=== PATIENT | female | born 1945 | race Caucasian/White ===

== ENCOUNTER → 2016-06-14 | Outpatient (CLI) | payer MEDICARE, OTHER ==
[~2016-06-14] MED LIST: CHOL200024 PO; LEVO100T12 PO; PILO5TAB PO; VITA150T PO; VITA400C19 PO; [UNRECOGNIZED DRUG - CODE] PO; [UNRECOGNIZED DRUG - CODE] PO
== END ==
LOC: WC.BC 13:02
DX: Z12.31 Encounter for screening mammogram for malignant neoplasm of breast (principal); N64.59 Other signs and symptoms in breast
CPT/HCPCS: 77063; G0202

== ENCOUNTER 2016-09-26 07:01 | Inpatient (IN) ==
[~2016-09-26 07:01] MED LIST changes: +ACETAMINOPHEN 500 MG TABLET PO ONE; -CHOL200024 PO; +FAMOTIDINE PREMIX 20 MG/50 ML BAG IV ONE; -LEVO100T12 PO; +LIDOCAINE 1% (10mg/ml) 10mL MDV SQ ONE; +MELOXICAM 15 MG TABLET PO ONE; +METOCLOPRAMIDE 10mg/2ml INJECTION IVP ONE; +NOZIN NASAL SWAB NAS ONE; +ONDANSETRON 4 MG/2 ML INJECTION IVP ONE; -PILO5TAB PO; -VITA150T PO; -VITA400C19 PO; -[UNRECOGNIZED DRUG - CODE] PO; -[UNRECOGNIZED DRUG - CODE] PO
--- NOTE | 2016-09-26 07:06 | History & Physical Update ---
- History and Physical Update Date: 09/26/16 Update: I evaluated this patient and found no changes in the history and clinical exam findings. The treatment plan and recommendations are also unchanged from the previous documentation.
[2016-09-26] MEDS: LR 1,000 ML IV SCH ×2 (07:49→11:23)
[2016-09-26] MEDS ORDERED: EPINEPHrine 0.25 MG, BUPIVACAINE 0.25% PF 30 ML, MORPHINE SULFATE 15 MG, KETOROLAC INJ ... OPSITE ONE (08:00)
--- NOTE | 2016-09-26 08:06 | Anesthesia Preoperative Report ---
Anesthesia Preoperative Record - Date and Time Date: 09/26/16 Preoperative Diagnosis: OA right knee Proposed Procedure: Right total knee NPO Since Date: 09/26/16 NPO Since Time: 00:00 Allergies/Adverse Reactions: Allergies Allergy/AdvReac Type Severity Reaction Status Date / Time Corticosteroids Allergy Unknown Flushing, Verified 09/21/16 13:34 (Glucocorticoids) heart racing diphenhydramine Allergy Unknown Flushing, Verified 09/21/16 13:34 severe headache, rapid heart rate tetracycline Allergy Unknown mouth sores Verified 09/21/16 13:34 codeine AdvReac Unknown Nausea Verified 09/21/16 13:34 morphine AdvReac Unknown Nausea Verified 09/21/16 13:34 iodine Allergy Unknown Injectable Uncoded 09/21/16 13:34 only, rash - Vital Signs Vital Signs: Temperature 97.9 F 09/26/16 07:16 Pulse Rate 80 09/26/16 07:16 Respiratory Rate 13 09/26/16 07:16 Blood Pressure 185/91 H 09/26/16 07:16 Pulse Oximetry 94 09/26/16 07:16 Oxygen Delivery Method Room Air Height and Weight: Height 1.68 m Weight 82.9 kg Body Mass Index 29.5 - Medications Inpatient Medications: Current Medications Epinephrine HCl 0.25 mg/Bupivacaine HCl 30 ml/Morphine Sulfate 15 mg/Ketorolac Tromethamine 60 mg/Sodium Chloride 65.25 mls @ 1 mls/hr OPSITE INTRAOP ONE PRN Reason: Protocol Stop: 09/29/16 01:14 Lactated Ringer's (Lactated Ringers) 1,000 mls @ 50 mls/hr IV .Q20H FRENCH Last Admin: 09/26/16 07:49 Dose: 50 mls/hr Sodium Chloride (Iv Flush) 10 - 80 ml IVF PRN PRN PRN Reason: Flushing Home Medications: Home Medications Medication Instructions Recorded Confirmed Type Vitamin E 800 unit PO DAILY #0 cap 05/04/15 History Biotin 7.5 mg PO DAILY 08/30/16 09/26/16 History Calcium Carbonate [Caltrate] 1,200 mg PO DAILY 08/30/16 09/26/16 History Cyanocobalamin (Vitamin B-12) 1,000 mcg PO DAILY 08/30/16 09/26/16 History [Vitamin B-12] Estrogens,Esterified [Menest] 1.25 mg PO DAILY 08/30/16 09/26/16 History L. Acidophilus/Bifid. Animalis 2 each PO DAILY 08/30/16 09/26/16 History [Dialyvite Chewable Probiotic] Levothyroxine Tab [Synthroid] 150 mcg PO ACB 08/30/16 09/26/16 History Pilocarpine Tab [Salagen] 5 mg PO TID MDD 20mg 08/30/16 09/26/16 History naproxen sodium 220 mg capsule 220 mg PO .prn cap 09/21/16 History peg 400-propylene glycol 0.4 %-0.3 1 drop EACH EYE Q6H PRN 09/21/16 History % eye drops Is Patient on Beta Myron?: No - Medical History Renal/Endocrine: Reports: Thyroid Disease - Surgical History HEENT Surgeries: Reports: Ear Surgery (Coleman Cataract w/ IOL; Retina detachment OS ; Retinal hole OS) GI Surgery/Treatments: Reports: Colonoscopy (10 years ago) Surgery/Treatment: REPORT: Other (cysto '83) Musculoskeletal Surgery/Tx: Reports: Total Knee Replacement (Left) Reproductive Surgery/Treatment: Reports: Hysterectomy, Other (A&P repair) - Social History Smoking Status: Never smoker Substance Use Type: does not use Alcohol Intake Frequency: does not drink - Pertinent Findings Laboratory: CBC and BMP 09/26/16 07:34 EKG Rhythm: Normal Sinus Rhythm - Physical Exam Respiratory Exam: Present: lungs clear Cardiovascular Exam: Present: regular rate and rhythm - Airway Assessment Mallampati Score: II TMD: 3 Fingerbreadths Neck Extension: fair Overall Assessment: no airway concerns - ASA ASA Score: 2 - Plan Regional/Trunk Block: Spinal - Discussion Discussion: Discussed risks/options/alternatives of anesthesia and questions answered. Patient consents. Nursing pain assessment noted. Present for Discussion: family member Attestation Statement: Prior to the delivery of any anesthetic medication, I examined the patient, developed the plan, obtained the patient's consent and discussed the risk and benefits of the procedure with the patient/guardian.
[2016-09-26] MEDS ORDERED: VANCOMYCIN 1,000 MG INJECTION ONE (08:12)
[2016-09-26] MEDS: CEFAZOLIN 1 G INJECTION IVP ONE ×2 (08:48→12:30)
[2016-09-26] MEDS ORDERED: FentaNYL 100 MCG/2 ML INJECTION ONE (08:54)
[2016-09-26] MEDS ORDERED: MIDAZOLAM 2mg/2ml INJECTION ONE (08:54)
[2016-09-26] MEDS ORDERED: PROPOFOL 500 MG/50 ML VIAL IV ONE (09:05)
[2016-09-26] MEDS: TRANEXAMIC ACID 1,000 MG in NS 100 ML IV ONE ×3 (09:05→12:29)
[2016-09-26] MEDS ORDERED: VANCOMYCIN 1,000 MG INJECTION IAR ONE (10:25)
--- NOTE | 2016-09-26 10:35 | Operative Note ---
- Procedure Date of Admission: 09/26/16 Side: right Preoperative Diagnosis: knee primary DJD Postoperative Diagnosis: Same as preoperative diagnosis. Operation: total knee arthroplasty Surgeon: Sury Quijano MD Car Repairman: ALEJANDRA Banuelos Complications: None. Regional/Trunk Block: Spinal Peripheral Nerve Block: Saphenous-Right Estimated Blood Loss: See Anesthesia Record. Fluids: Please see Anesthesia Record. Description of Procedure: Mrs. Courtney and her right knee were identified and marked in the preoperative holding area. She's palpate operating suite and spinal anesthetic was administered. She is then placed into a supine position and her right lower extremity was prepped and draped in the normal sterile fashion. Timeout was performed. A standard anterior incision followed by a medial parapatellar approach was utilized. She had severe wear in the medial compartment. A distal femoral cut was made in 5 of valgus using intramedullary guide. The femur was sized at a 5 and rotation set using the epicondylar axis. Distal femoral cuts were performed. A proximal tibial cut was made using extramedullary guide. Remaining osteophytes and meniscus were removed. Gaps were checked and they were well balanced and rectangular. Trial components were placed with a 9 mm spacer. This allowed for full range of motion and the patella tracked well. She has some increased laxity laterally and a PCL was small checkup for posterior stabilized box. The patella was resurfaced with the knee in extension to a size 29. The tibia rotation was then marked and the tibia stamped at the proper rotation at a size 4. The bone was prepared for cementing and all components cemented into place and allowed to cure in extension. Betadine solution was used for 3 minutes during the curing period and then fully irrigated out with 1 L of normal saline. The tourniquet was deflated and hemostasis obtained with electrocautery. After the cement had cured the knee was taken through range of motion check for balance and stability which were good. I placed a final size 11 TS insert. Vancomycin powder was placed into the wound. The arthrotomy was closed with #1 Vicryl. The remainder of the wound was then closed by my seed laboratory assistant utilizing 2-0 vycral in the subcutaneous tissue. 4-0 monocryl was used in the subcuticular layer followed by dermabond and a sterile dressing. After closure the patient will be transferred to the recovery room under the care of anesthesia.
[2016-09-26] MEDS ORDERED: ROPIVACAINE 0.5% (5mg/ml) 30ml INJ ONE (10:37)
--- NOTE | 2016-09-26 11:19 | Anesthesia Procedure Note ---
Peripheral Nerve Blockade - Procedure Physician: Smith Quijano MD Date: 09/26/16 Surgical Procedure: Right TKA Discussion: Discussed risks/options/alternatives of anesthesia and questions answered. Patient consents. Nursing pain assessment noted. Block Start: 11:13 Block Stop: 11:15 Blocked Employed: Adductor Canal Indication: Post-Operative Pain Approach: Right Side Confirmed Position: Supine Patient: Consent, Risks/Benefits Discussed, Informed, Post Block Act. Discussed IV Sedation: No Sedation: Awake Initial Vital Signs: Pulse Rate 70 09/25/16 07:03 Post Vital Signs: Temperature 97.9 F 09/26/16 07:16 Pulse Rate 80 09/26/16 07:16 Respiratory Rate 13 09/26/16 07:16 Blood Pressure 185/91 H 09/26/16 07:16 Pulse Oximetry 94 09/26/16 07:16 Oxygen Delivery Method Room Air Initial Pain Pain Score: 0 Post Block Pain Score: 0 Prep: Chlorhexadine/ETOH Ultrasound Used?: Yes - Nerve Simulator Muscle Response: No Paresthesia/Pain: None - Injectate Ropivacaine (%): 0.5 Ropivacaine (mL): 15 Was Epi 1:200,000 Used?: No Injection: Injection made incrementally with constant monitoring and aspiration every ml
--- NOTE | 2016-09-26 11:20 | Anesthesia Postoperative Note ---
- Date and Time Date: 09/26/16 Time: 11:20 - Status Patient Participated in Evaluation: Patient Participated in Person Vital Signs: Temperature 97.9 F 09/26/16 07:16 Pulse Rate 80 09/26/16 07:16 Respiratory Rate 13 09/26/16 07:16 Blood Pressure 185/91 H 09/26/16 07:16 Pulse Oximetry 94 09/26/16 07:16 Oxygen Delivery Method Room Air Respiratory Function: Airway Patent, Regular Respirations Cardiovascular Function: Regular Pulse EKG Rhythm: Normal Sinus Rhythm Mental Status: Alert and Oriented Pain Intensity: 0 Hydration: IV Infusing Complications During Recover: None Apparent - Follow-Up Instructions Instructions: Per Surgeon
[2016-09-26] MEDS ORDERED: DiphenhydrAMINE 50 MG/ML INJECTION IVP PRN (12:07)
[2016-09-26] MEDS ORDERED: NOZIN NASAL SWAB NAS ONE (12:07)
[2016-09-26] MEDS ORDERED: DiphenhydrAMINE 25 MG CAPSULE PO PRN (12:07)
[2016-09-26] MEDS ORDERED: ONDANSETRON 4 MG/2 ML INJECTION IVP PRN (12:07)
[2016-09-26] MEDS ORDERED: TRAMADOL 50 MG TABLET PO PRN (12:07)
[2016-09-26] MEDS ORDERED: LORazepam 1 MG TABLET PO PRN (12:07)
--- NOTE | 2016-09-26 12:19 | XRay Report ---
Indication: postoperative image right knee replacement PROCEDURE: XR knee RT 2V: Encounter: Initial Comparison: None Findings: Postoperative changes of right total knee replacement are seen. There is expected postoperative subcutaneous gas. No evidence of hardware failure or acute fracture. No retained radiopaque surgical instruments or sponges. Overlying material causing artifact. Impression: New right total knee prosthesis without evidence of immediate complication. .
[2016-09-26] MEDS: NS 1,000 ML IV SCH (12:27)
--- NOTE | 2016-09-26 12:32 | Pharmacy Consult ---
Pharmacy Consult-Warfarin - Laboratory Information COUMADIN CONSULT (Initial): Dx: Right Total Knee Replacement Baseline INR = None drawn. I will order Warfarin 5 mg today and daily INR's. The pharmacy will continue to monitor and dose warfarin accordingly. Thank you, Kristopher Carney, Pharmacist.
[2016-09-26] MEDS: ENOXAPARIN 40 MG/0.4 ML INJECTION SQ SCH (13:58)
[2016-09-26] MEDS: ACETAMINOPHEN 325 MG TABLET PO SCH ×3 (13:58→21:43)
[2016-09-26] MEDS: NOZIN NASAL SWAB NAS SCH ×2 (13:59→21:44)
[2016-09-26] MEDS ORDERED: KETOROLAC 30 MG/ML INJECTION ONE (14:54)
[2016-09-26] MEDS: PILOCARPINE 5 MG TABLET PO SCH ×2 (15:22→21:44)
[2016-09-26] MEDS ORDERED: Pharmacy Consult for Fall Risk XX PRN (16:31)
[2016-09-26] MEDS: CEFAZOLIN 2 G in NS 100 ML IV SCH (16:53)
[2016-09-26] MEDS ORDERED: SALINE FLUSH 10ml SYRINGE IVF PRN (17:13)
[2016-09-26] MEDS: NAPROXEN 220 MG TABLET PO PRN (19:56)
[2016-09-26] MEDS: DOCUSATE SODIUM 100 MG CAPSULE PO SCH (21:43)
[2016-09-26] MEDS ORDERED: SENNOSIDES 8.6 MG TABLET PO SCH (22:00)
[2016-09-27] MEDS: NS 1,000 ML IV SCH (00:37)
[2016-09-27] MEDS: CEFAZOLIN 2 G in NS 100 ML IV SCH (00:37)
[2016-09-27] MEDS: NOZIN NASAL SWAB NAS SCH (05:10)
[2016-09-27] MEDS: NAPROXEN 220 MG TABLET PO PRN (05:11)
[2016-09-27] MEDS: LEVOTHYROXINE 150 MCG TABLET PO SCH ×2 (05:11→07:15)
--- NOTE | 2016-09-27 08:00 | Orthopedic Progress Note ---
Date: Subjective/Severity of Illness: Annia is doing well. Pain is controlled. No CP, SOA, or cough. She has been up with good tolerance. On Lovenox-Coumadin protocol for hx of Cervical CA. Orthopedic Objective PO Vital signs: Temperature 97.0 F 09/27/16 04:25 Pulse Rate 68 09/27/16 04:25 Respiratory Rate 16 09/27/16 04:25 Blood Pressure 158/65 H 09/27/16 04:25 Pulse Oximetry 96 09/27/16 04:25 Oxygen Delivery Method Room Air Height and Weight: Height 5 ft 6 in Weight 190 lb 0.615 oz Body Mass Index 29.5 - Constitutional General Appearance: Present: alert, no acute distress - Respiratory Exam Present: non-labored - Cardiovascular Exam Present: pedal pulses intact - Extremities Exam Extremities: Present: pulses intact - Surgical Site Incision: Mepilex dressing intact, no drainage - Neurological Exam Present: no deficits - Psychiatric Exam Present: alert, normal affect - Labs Result Diagrams: 09/27/16 04:04 09/27/16 04:04 Abnormal lab results 09/26/16 09/27/16 09/27/16 Range/Units 07:34 04:04 04:04 RBC 3.55 L (4.00-5.20) M/MM3 Hgb 9.7 L D (12-16) GM/DL Hct 31.2 L D (36-46) % MPV 9.1 L 9.2 L (9.4-12.4) UM3 INR 0.96 L (0.99-1.21) Glucose (65-110) MG/DL Calcium (8.4-10.2) MG/DL 09/27/16 Range/Units 04:04 RBC (4.00-5.20) M/MM3 Hgb (12-16) GM/DL Hct (36-46) % MPV (9.4-12.4) UM3 INR (0.99-1.21) Glucose 122 H (65-110) MG/DL Calcium 8.3 L D (8.4-10.2) MG/DL H & H 09/26/16 09/27/16 Range/Units 07:34 04:04 Hgb 12.1 9.7 L D (12-16) GM/DL Hct 37.8 31.2 L D (36-46) % Coagulation 09/27/16 Range/Units 04:04 INR 0.96 L (0.99-1.21) Orthopedic Assessment and Plan (1) Arthritis of knee, right Status: Acute Assessment and Plan: Lovenox-Coumadin protocol for VTE prophylaxis. SCD's. PT/OT services to improve independent function. Discharge Planning per Case Management. Hospital Course Summary Disclaimer: The visit summary below is not to be considered part of the above Progress Note.
--- NOTE | 2016-09-27 08:14 | Pharmacy Consult ---
Pharmacy Consult-Warfarin - Laboratory Information 09/27/16 04:04 INR 0.96 L - Consult Information COUMADIN CONSULT (Recurring): Today's INR = 0.96. Will give Warfarin 5mg today. Will continue to monitor & make adjustments accordingly. Thank you.
[2016-09-27] MEDS: PILOCARPINE 5 MG TABLET PO SCH (08:27)
[2016-09-27] MEDS: APAP/CODEINE 300 MG/30 MG TABLET PO PRN ×3 (08:27→12:27)
[2016-09-27] MEDS: DOCUSATE SODIUM 100 MG CAPSULE PO SCH (08:27)
[2016-09-27] MEDS ORDERED: POLYETHYL GLYCOL 3350 17gm PACKET PO SCH (09:00)
[2016-09-27] MEDS ORDERED: SENNOSIDES 8.6 MG TABLET PO PRN (11:05)
[2016-09-27] MEDS ORDERED: WARFARIN 5 MG TABLET PO SCH (12:00)
[2016-09-27] MEDS ORDERED: SALINE FLUSH 10ml SYRINGE IV PRN (12:59)
[2016-09-27] MEDS: ENOXAPARIN 40 MG/0.4 ML INJECTION SQ SCH (13:02)
--- NOTE | 2016-09-27 13:32 | Discharge Summary ---
Orthopedic Discharge Info Date of admission: 09/26/16 07:01 Primary care physician: Trace Jiménez MD Attending Physician: Smith Quijano MD Consults: 09/26/16 07:10 Consult to Anesthesiology [CONS] Routine Consulting Provider: ALEJANDRA Pickett Reason For Exam: Preoperative Assessment 09/26/16 12:07 Case Management Consult [CONS] Routine Reason For Exam: Discharge Planning DME-Walker [CONS] Routine Height: 5 ft 6 in Weight: 182 lb 12.211 oz Comment: change dressing in 2 weeks Pharmacy Consult [CONS] Routine Pharmacy Consult: Coumadin/Warfarin Total Joint Outpatient Therapy [CONS] Routine Comment: change dressing in 2 weeks - Discharge Diagnosis (1) Arthritis of knee, right Status: Acute - Procedures Procedures: Right TKA - Laboratory Result Diagrams: 09/27/16 04:04 09/27/16 04:04 Laboratory: Abnormal lab results 09/27/16 09/27/16 09/27/16 Range/Units 04:04 04:04 04:04 RBC 3.55 L (4.00-5.20) M/MM3 Hgb 9.7 L D (12-16) GM/DL Hct 31.2 L D (36-46) % MPV 9.2 L (9.4-12.4) UM3 INR 0.96 L (0.99-1.21) Glucose 122 H (65-110) MG/DL Calcium 8.3 L D (8.4-10.2) MG/DL H & H 09/26/16 09/27/16 Range/Units 07:34 04:04 Hgb 12.1 9.7 L D (12-16) GM/DL Hct 37.8 31.2 L D (36-46) % Coagulation 09/27/16 Range/Units 04:04 INR 0.96 L (0.99-1.21) Orthopedic Discharge HPI - HPI Comments This patient was admitted for elective surgical tx of end stage degenerative joint disease that failed to respond to conservative treatment. Further details of this is found in the admission H&P. Orthopedic Hospital Course Hospital course: 09/27/16 13:27 After appropriate preoperative clearance and signing of operative consent, the patient was given IV antibiotics, according to orthopedic protocol. The patient was taken to the operating room and underwent elective joint arthroplasty. Following surgery, antibiotics were discontinued less than 24 hours according to joint protocol. Appropriate anticoagulants were initiated and SCDs added for DVT prevention. The dressing was clean, dry, and intact. Pain control was obtained via multimodal approach. Bowel motivation addressed with scheduled and PRN medications. Early mobilization was initiated through PT services. Discharge arrangements made by a collaborative effort between the patient and Case Management. Follow-up is scheduled in 2-3 weeks. Discharge instructions given by orthopedic providers and nursing staff at discharge. Discharge condition was good. Ongoing care required?: No - Postoperative Anemia patient received IVF, labs monitored daily, no intervention required, HGB drop- acceptable Discharge Plan - Med Rec/Dispo Referrals/Follow Up: Smith Quijano MD [Physician] - 10/18/16 9:00 am Charlesuvrichy Instructions: [facility] Ortho Postop Instructions Additional Instructions: [facility] ON 09/29/2016 AT 8:45AM FOR PHYSICAL THERAPY EVAL. PLEASE COMPLETE THE PAPERWORK IN THE [facility] FOLDER PRIOR TO THE APPOINTMENT. PHONE [phone] INR LAB DRAW TWICE A WEEK (MONDAYS AND THURSDAYS) AT DR. JIMÉNEZ'S OFFICE AT [facility] FOR FOUR WEEKS. PHONE [phone] Prescriptions: New APAP/Codeine 300/30 (#3) [Tylenol with Codeine #3 (300/30)] 1 - 2 tab PO Q4H PRN #60 tablet PRN Reason: Pain Enoxaparin Sodium [Lovenox] 40 mg SQ Q24H #5 syringe Naproxen [Aleve] 440 mg PO BID PRN tablet PRN Reason: Pain PEG 3350 17gm PACKET [Miralax] 17 gm PO DAILY packet Continue Biotin 7.5 mg PO DAILY Levothyroxine Tab [Synthroid] 150 mcg PO ACB Cyanocobalamin (Vitamin B-12) [Vitamin B-12] 1,000 mcg PO DAILY Pilocarpine Tab [Salagen] 5 mg PO TID MDD 20mg Estrogens,Esterified [Menest] 1.25 mg PO DAILY Vitamin E 800 unit PO DAILY #0 cap L. Acidophilus/Bifid. Animalis [Dialyvite Chewable Probiotic] 2 each PO DAILY Calcium Carbonate [Caltrate] 1,200 mg PO DAILY naproxen sodium 220 mg capsule 220 mg PO .prn cap peg 400-propylene glycol 0.4 %-0.3 % eye drops 1 drop EACH EYE Q6H PRN PRN Reason: Dry Eyes - Disposition 01 Discharged Home, Self-Care
[2016-09-28] MEDS ORDERED: BISACODYL 10 MG SUPPOSITORY RECTALLY SCH (20:00)
[2016-09-29] MEDS ORDERED: SCOPOLAMINE 1.5 MG PATCH TD SCH (12:15)
== END 2016-09-27 14:30 | disposition home or self-care (01) | DRG 470 ==
LOC: SRG 07:01
PROVIDERS: ADMIT Orthopaedic Surgery; ATTEND Orthopaedic Surgery